=== PATIENT | male | born 1960 | race Caucasian/White ===

== ENCOUNTER 2017-09-23 11:12 | Emergency (ER) | payer BC ==
[~2017-09-23] VITALS: Ht 177.8 cm; Wt 83.9 kg
[2017-09-23 11:43] VITALS: BP 128/87
[2017-09-23] MEDS ORDERED: KETOROLAC TROMETH 60MG/2ML VIAL IM ONE (14:15)
== END 2017-09-23 15:01 | disposition home or self-care (01) ==
LOC: ER 11:12
DX: S92.511A Displaced fracture of proximal phalanx of right lesser toe(s), initial encounter for closed fracture (principal); V49.9XXA Car occupant (driver) (passenger) injured in unspecified traffic accident, initial encounter; Y93.89 Activity, other specified; Y92.89 Other specified places as the place of occurrence of the external cause; Y99.8 Other external cause status
CPT/HCPCS: 73630

== ENCOUNTER 2022-01-23 01:46 | Emergency (ER) | payer BC ==
[~2022-01-23] VITALS: Ht 177.8 cm; Wt 74.8 kg
[2022-01-23] MEDS ORDERED: KETOROLAC TROMETH 60MG/2ML VIAL IM ONE (02:45)
[2022-01-23] MEDS ORDERED: IBU600T PO (04:08)
[2022-01-23 05:25] VITALS: BP 127/72
== END 2022-01-23 05:25 | disposition home or self-care (01) ==
LOC: ER 01:46
DX: S09.90XA Unspecified injury of head, initial encounter (principal); M79.10 Myalgia, unspecified site; F17.210 Nicotine dependence, cigarettes, uncomplicated; Z79.1 Long term (current) use of non-steroidal anti-inflammatories (NSAID); W01.0XXA Fall on same level from slipping, tripping and stumbling without subsequent striking against object, initial encounter; Y93.89 Activity, other specified; Y92.89 Other specified places as the place of occurrence of the external cause; Y99.8 Other external cause status
CPT/HCPCS: 70450; 72125; 72128; 72131; 99284; J1885